=== PATIENT | female | born 1985 | race Hispanic/Latino ===

== ENCOUNTER 2018-02-22 19:56 | Emergency (ER) | payer OTHER, SELFPAY ==
[2018-02-22 20:25] LABS: #Eosinphils 0.2 thou/uL (0.0-0.7); #Lymphocytes 2.9 thou/uL (1.20-3.40); #Monocytes 0.6 thou/uL (0.11-0.59); #Neutrophils 5.2 thou/uL (1.40-6.50); %Basophils 0.3 % (0.0-1.0); %Eosinophils 1.7 % (0.0-10.0); %Lymphocytes 32.1 % (21.0-51.0); %Monocytes 7.2 % (0.0-10.0); %Neutrophils 58.7 % (42.0-75.0); Hemoglobin 12.4 g/dL (12.0-16.0); Mean Corpuscular HGB CONC 34.6 g/dL (32.0-36.0); Mean Corpuscular Hemoglobin 31.1 pg (27.0-31.0); Mean Corpuscular Volume 89.9 fl (81.0-99.0); Mean Platelet Volume 6.7 fL (7.4-10.4); Platelet Count 240 thou/uL (130-400); Red Blood Cell (RBC) Count 3.99 mill/uL (4.20-5.40); White Blood Cell (WBC) Count 8.9 thou/uL (4.8-10.8)
[2018-02-22 20:32] LABS: BHCG - Serum Negative (NEGATIVE); Pregs Control Background? CLEAR/WHITE (CLR/WHITE); Pregs Control Bar Appear? YES (CONTROL BAR)
[2018-02-22 20:41] LABS: ALT (SGPT) 8 U/L (8-55); AST (SGOT) 16 U/L (5-34); Albumin 4.2 g/dL (3.5-5.0); Alkaline Phosphatase 84 U/L (40-150); Anion Gap 13 mmol/L (10-20); BUN (Urea Nitrogen) 16 mg/dL (7.0-18.7); Bilirubin, Total 0.2 mg/dL (0.2-1.2); Calc. Creatinine Clearance 0 mL/min (70-130); Calcium 9.3 mg/dL (7.8-10.44); Carbon Dioxide 23 mmol/L (22-29); Chloride 106 mmol/L (98-107); Estimated GFR-MDRD 85; Globulin 3.5 g/dL (2.4-3.5); Glucose 156 mg/dL (70-105); Lipase 61 U/L (8-78); Potassium 4.2 mmol/L (3.5-5.1); Protein, Total 7.7 g/dL (6.0-8.3); Sodium 138 mmol/L (136-145)
[2018-02-22 21:07] LABS: Bilirubin Negative (Negative); Blood, Urine Negative (Negative); Clarity Clear (Clear); Glucose, Urine (Dipstick) Negative (Negative); Leukocyte Small (Negative); Nitrite Negative (Negative); Protein, Urine (Dipstick) Negative (Neg-Trace); Specific Gravity, Urine 1.025 (1.002-1.036); pH, Urine 6.5 (5.0-9.0)
[2018-02-22 21:17] LABS: Bacteria/HPF None Seen HPF (None Seen); Hyaline Casts/LPF 0-3 HYALINE CAST LPF (0-3 Hyaline); RBC/HPF 0-3 HPF (0-3)
[2018-02-23] MEDS ORDERED: Morphine 4 MG/ML VIAL ONE (00:54)
[2018-02-23] MEDS ORDERED: Mag-Al 1200 mg/1200 mg/30 ML UDCUP ONE (00:55)
[2018-02-23] MEDS ORDERED: Lidocaine Viscous Sol 2% 15 ml UD Cup ONE (00:55)
[2018-02-23] MEDS ORDERED: Ketorolac Tromethamine 60 MG/2 ML VIAL ONE (02:25)
--- NOTE | 2018-02-23 08:30 | ULT ---
PRELIMINARY REPORT/[facility]/EMERGENTY AFTER-HOURS PROCEDURE US Abdomen Limited, Right Upper Quadrant CLINICAL HISTORY: 32 years old, female; Pain and signs and symptoms; Nausea; Abdominal pain; Localized; Right upper quadrant (ruq); Prior surgery; Surgery date: 6+ months; Surgery type: Cholecystectomy TECHNIQUE: Real-time ultrasound of the right upper quadrant with image documentation. COMPARISON: No relevant prior studies available. FINDINGS: Liver: No acute findings. No mass. Gallbladder: Prior cholecystectomy. Common bile duct: Mildly dilated common bile duct measuring up to 7.5 mm. Pancreas: Limited visualization due to bowel gas. Unremarkable as visualized. Right kidney: No acute findings. No stones. No solid mass. No hydronephrosis. IMPRESSION: No acute findings. Prior cholecystectomy. Mildly dilated common bile duct. Thank you for allowing us to participate in the care of your patient. Dictated and Authenticated by: Kyaw Crockett MD 02/23/2018 2:02 AM Central Time ([place] & [place]) FINAL REPORT GALLBLADDER ULTRASOUND: HISTORY: Abdominal pain. COMPARISON: November 21, 2008. TECHNIQUE: Utilizing a multihertz transducer, sonographic imaging of the right upper quadrant is performed in th e longitudinal and transverse plane. FINDINGS: This report is in agreement with the preliminary report by [facility]. No acute abnormality I the abdomen. Gallbladder is surgically absent. Common bile duct diameter is 0.8 cm compatible with a reservoir e ffect from a previous cholecystectomy. Hepatic parenchyma is unremarkable. POS: [facility]
== END 2018-02-23 03:00 | disposition home or self-care (01) ==
LOC: ERS 19:56
DX: R10.13 Epigastric pain (principal); I48.91 Unspecified atrial fibrillation
CPT/HCPCS: 36415; 76705; 80053; 81003; 81015; 82550; 83690; 84703; 85025; 96372; J1885; J2270

== ENCOUNTER 2018-02-25 12:12 | Emergency (ER) | payer SELFPAY ==
[2018-02-25 12:40] LABS: #Eosinphils 0.2 thou/uL (0.0-0.7); #Lymphocytes 2.5 thou/uL (1.20-3.40); #Monocytes 0.4 thou/uL (0.11-0.59); %Basophils 0.5 % (0.0-1.0); %Eosinophils 2.4 % (0.0-10.0); %Lymphocytes 30.4 % (21.0-51.0); %Monocytes 5.2 % (0.0-10.0); %Neutrophils 61.4 % (42.0-75.0); Hemoglobin 13.4 g/dL (12.0-16.0); Mean Corpuscular HGB CONC 34.9 g/dL (32.0-36.0); Mean Corpuscular Hemoglobin 31.3 pg (27.0-31.0); Mean Corpuscular Volume 89.6 fl (81.0-99.0); Mean Platelet Volume 6.8 fL (7.4-10.4); Platelet Count 254 thou/uL (130-400); RBC Distribution Width 11.1 % (11.5-14.5); Red Blood Cell (RBC) Count 4.28 mill/uL (4.20-5.40); White Blood Cell (WBC) Count 8.1 thou/uL (4.8-10.8)
[2018-02-25 13:01] LABS: ALT (SGPT) 11 U/L (8-55); AST (SGOT) 24 U/L (5-34); Albumin 4.5 g/dL (3.5-5.0); Alkaline Phosphatase 87 U/L (40-150); Anion Gap 14 mmol/L (10-20); BUN (Urea Nitrogen) 16 mg/dL (7.0-18.7); Bilirubin, Total 0.5 mg/dL (0.2-1.2); CK (CPK) 44 U/L (29-168); Calc. Creatinine Clearance 0 mL/min (70-130); Calcium 9.6 mg/dL (7.8-10.44); Carbon Dioxide 24 mmol/L (22-29); Chloride 104 mmol/L (98-107); Estimated GFR-MDRD 88; Globulin 3.8 g/dL (2.4-3.5); Glucose 100 mg/dL (70-105); Lipase 34 U/L (8-78); Potassium 3.7 mmol/L (3.5-5.1); Protein, Total 8.3 g/dL (6.0-8.3); Sodium 138 mmol/L (136-145)
[2018-02-25 13:06] LABS: CKMB 0.4 ng/mL (0-6.6); Troponin I Less than 0.010 ng/mL (< 0.028)
--- NOTE | 2018-02-25 13:23 | RAD ---
PORTABLE UPRIGHT FRONTAL CHEST: Date: 02/25/18 COMPARISON: 05/29/12. HISTORY: Chest pain and abdominal pain. FINDINGS: Heart and mediastinal contours are unremarkable. Lungs are clear. Osseous structures unremarkable. IMPRESSION: Unremarkable frontal chest radiograph. POS: [facility]
[2018-02-25] MEDS ORDERED: Sucralfate 1 GM/10 ML UDCUP ONE (14:59)
[2018-02-25] MEDS ORDERED: Pantoprazole 40 MG VIAL ONE ×2 (15:14)
== END 2018-02-25 16:56 | disposition home or self-care (01) ==
LOC: ERS 12:12
DX: K29.00 Acute gastritis without bleeding (principal); I48.91 Unspecified atrial fibrillation; K85.90 Acute pancreatitis without necrosis or infection, unspecified; D64.9 Anemia, unspecified
CPT/HCPCS: 71045; 80053; 82553; 83605; 83690; 83880; 84484; 85025; 93005; 96361; 96374; C9113

== ENCOUNTER 2018-02-25 21:17 | Emergency (ER) | payer SELFPAY | END 2018-02-25 23:31 | disposition left against medical advice (07) | LOC: ERS 21:17 | DX: Z53.21 Procedure and treatment not carried out due to patient leaving prior to being seen by health care provider (principal) ==

== ENCOUNTER 2018-03-15 14:28 | Emergency (ER) | payer SELFPAY ==
[2018-03-15 15:10] LABS: #Eosinphils 0.2 thou/uL (0.0-0.7); #Lymphocytes 2.1 thou/uL (1.20-3.40); #Monocytes 0.6 thou/uL (0.11-0.59); #Neutrophils 6.3 thou/uL (1.40-6.50); %Basophils 0.2 % (0.0-1.0); %Eosinophils 2.2 % (0.0-10.0); %Lymphocytes 23.1 % (21.0-51.0); %Monocytes 6.4 % (0.0-10.0); %Neutrophils 68.1 % (42.0-75.0); Hemoglobin 11.6 g/dL (12.0-16.0); Mean Corpuscular HGB CONC 34.5 g/dL (32.0-36.0); Mean Corpuscular Hemoglobin 31.1 pg (27.0-31.0); Mean Corpuscular Volume 90.2 fl (81.0-99.0); Platelet Count 225 thou/uL (130-400); Red Blood Cell (RBC) Count 3.72 mill/uL (4.20-5.40); White Blood Cell (WBC) Count 9.3 thou/uL (4.8-10.8)
[2018-03-15] MEDS ORDERED: Lidocaine Viscous Sol 2% 15 ml UD Cup ONE (15:21)
[2018-03-15] MEDS ORDERED: Mag-Al 1200 mg/1200 mg/30 ML UDCUP ONE (15:21)
[2018-03-15 15:32] LABS: ALT (SGPT) 21 U/L (8-55); AST (SGOT) 53 U/L (5-34); Albumin 4.2 g/dL (3.5-5.0); Alkaline Phosphatase 96 U/L (40-150); Anion Gap 12 mmol/L (10-20); BUN (Urea Nitrogen) 13 mg/dL (7.0-18.7); Bilirubin, Total 0.2 mg/dL (0.2-1.2); CK (CPK) 47 U/L (29-168); Calc. Creatinine Clearance 0 mL/min (70-130); Calcium 9.1 mg/dL (7.8-10.44); Carbon Dioxide 26 mmol/L (22-29); Chloride 104 mmol/L (98-107); Estimated GFR-MDRD 84; Globulin 3.3 g/dL (2.4-3.5); Glucose 108 mg/dL (70-105); Lipase 44 U/L (8-78); Protein, Total 7.5 g/dL (6.0-8.3); Sodium 138 mmol/L (136-145)
[2018-03-15 15:34] LABS: CKMB 0.6 ng/mL (0-6.6); Troponin I Less than 0.010 ng/mL (< 0.028)
[2018-03-15] MEDS ORDERED: Glycopyrrolate 0.2 MG/ML 5 ML SYRINGE SLOW IVP SCH (15:45)
--- NOTE | 2018-03-15 15:58 | RAD ---
CHEST 2 VIEWS: Date: 03/15/18 HISTORY: Chest pain. COMPARISON: Prior chest radiograph dated 02/25/18. FINDINGS: Lungs are clear. No pneumothorax or effusion. Cardiac silhouette and mediastinal contours are within normal limits. IMPRESSION: No acute thoracic abnormality. POS: [facility]
[2018-03-15 16:12] LABS: Bilirubin Negative (Negative); Blood, Urine Negative (Negative); Clarity CLEAR (Clear); Glucose, Urine (Dipstick) Negative (Negative); Leukocyte Negative (Negative); Nitrite Negative (Negative); Protein, Urine (Dipstick) Negative (Neg-Trace); Specific Gravity, Urine 1.026 (1.002-1.036); pH, Urine 6.5 (5.0-9.0)
[2018-03-15 16:16] LABS: Pregnancy Test - Urine (BHCG) Negative (Negative); Pregu Control Background? CLEAR/WHITE (CLR/WHITE); Pregu Control Bar Appear? YES (CONTROL BAR); Specific Gravity 1.026 (1.002-1.036)
== END 2018-03-15 17:07 | disposition home or self-care (01) ==
LOC: ERS 14:28
DX: R10.13 Epigastric pain (principal); I48.91 Unspecified atrial fibrillation; D64.9 Anemia, unspecified
CPT/HCPCS: 36415; 71046; 80053; 81003; 81025; 82550; 82553; 83690; 84484; 85025; 93005; 96374

== ENCOUNTER 2021-02-18 13:37 | Inpatient (IN) | payer OTHER, SELFPAY ==
[2021-02-18 14:32] LABS: #Eosinphils 0.2 thou/uL (0.0-0.7); #Lymphocytes 2.3 thou/uL (1.20-3.40); #Monocytes 0.7 thou/uL (0.11-0.59); #Neutrophils 6.2 thou/uL (1.40-6.50); %Eosinophils 2.5 % (0.0-10.0); %Lymphocytes 24.7 % (21.0-51.0); %Monocytes 7.3 % (0.0-10.0); %Neutrophils 65.5 % (42.0-75.0); Hemoglobin 11.2 g/dL (12.0-16.0); Mean Corpuscular HGB CONC 32.7 g/dL (32.0-36.0); Mean Corpuscular Hemoglobin 27.1 pg (27.0-31.0); Mean Corpuscular Volume 82.9 fL (78.0-98.0); Mean Platelet Volume 6.9 fL (7.4-10.4); Platelet Count 260 thou/uL (130-400); Red Blood Cell (RBC) Count 4.14 mill/uL (4.20-5.40); White Blood Cell (WBC) Count 9.4 thou/uL (4.8-10.8)
[2021-02-18 14:53] LABS: ALT (SGPT) 12 U/L (8-55); AST (SGOT) 17 U/L (5-34); Albumin 4.1 g/dL (3.5-5.0); Alkaline Phosphatase 83 U/L (40-110); Anion Gap 12 mmol/L (10-20); BUN (Urea Nitrogen) 10 mg/dL (7.0-18.7); Bilirubin, Total 0.2 mg/dL (0.2-1.2); Calc. Creatinine Clearance 0 mL/min (70-130); Calcium 9.1 mg/dL (7.8-10.44); Carbon Dioxide 29 mmol/L (22-29); Chloride 103 mmol/L (98-107); Globulin 3.7 g/dL (2.4-3.5); Glucose 222 mg/dL (70-105); Potassium 4.2 mmol/L (3.5-5.1); Protein, Total 7.8 g/dL (6.0-8.3); Sodium 140 mmol/L (136-145)
[2021-02-18 14:57] LABS: Bilirubin Negative (Negative); Blood, Urine Negative (Negative); Clarity Clear (Clear); Glucose, Urine (Dipstick) Greater than 1000 mg/dL (Negative); Ketone, Urine Negative (Negative); Leukocyte Negative Leu/uL (Negative); Nitrite Negative (Negative); Protein, Urine (Dipstick) Negative (Neg-Trace); Specific Gravity, Urine 1.029 (1.002-1.036); Urobilinogen Normal mg/dL (Less than 2)
[2021-02-18] MEDS ORDERED: Morphine 4 MG/ML VIAL ONE ×2 (15:35→16:05)
[2021-02-18] MEDS ORDERED: Ondansetron PF 4 MG/2 ML Vial ONE (15:35)
[2021-02-18] MEDS ORDERED: HYDROmorphone 0.5 MG/0.5 ML SYRINGE ONE (16:39)
[2021-02-18] MEDS ORDERED: Ketorolac Tromethamine 30 MG/ML VIAL IVP PRN (18:27)
[2021-02-18] MEDS ORDERED: Morphine 4 MG/ML VIAL SLOW IVP PRN ×2 (18:27→20:04)
[2021-02-18] MEDS ORDERED: Ondansetron ODT 4 MG TAB SL PRN (18:30)
[2021-02-18] MEDS ORDERED: Ondansetron PF 4 MG/2 ML Vial IVP PRN ×2 (18:30→20:13)
[2021-02-18] MEDS ORDERED: Acetaminophen 325 MG TAB PO PRN ×2 (18:30→20:13)
[2021-02-18] MEDS ORDERED: Sodium Chloride 0.9% 1,000 ML IV SCH (18:30)
[2021-02-18] MEDS ORDERED: Dextrose 5% in Water 1,000 ML IV PRN (20:06)
[2021-02-18] MEDS ORDERED: Dextrose 50% Abboject 50 ML SYRINGE SLOW IVP PRN (20:06)
[2021-02-18] MEDS ORDERED: Acetaminophen 650 MG Suppository PR PRN (20:13)
[2021-02-18] MEDS ORDERED: Ondansetron ODT 4 MG TAB PO PRN (20:13)
[2021-02-18] MEDS ORDERED: Sodium Chloride 0.9% (PF) 10 ML VIAL FS PRN (21:00)
[2021-02-18] MEDS ORDERED: Pantoprazole 40 MG VIAL IVP SCH (21:00)
[2021-02-18] MEDS: Fentanyl 100 MCG/2 ML VIAL SLOW IVP SCH (21:02)
[2021-02-18] MEDS: Sodium Chloride 0.9% 1,000 ML IV SCH (22:02)
[2021-02-19] MEDS: Sodium Chloride 0.9% 1,000 ML IV SCH ×5 (00:45→22:15)
[2021-02-19] MEDS: Fentanyl 100 MCG/2 ML VIAL SLOW IVP SCH ×6 (01:15→20:24)
[2021-02-19 02:31] VITALS: BMI 30.2
[2021-02-19 06:05] LABS: #Eosinphils 0.2 thou/uL (0.0-0.7); #Lymphocytes 2.3 thou/uL (1.20-3.40); #Monocytes 0.8 thou/uL (0.11-0.59); #Neutrophils 3.8 thou/uL (1.40-6.50); %Basophils 0.3 % (0.0-1.0); %Eosinophils 2.5 % (0.0-10.0); %Lymphocytes 32.3 % (21.0-51.0); %Monocytes 11.2 % (0.0-10.0); %Neutrophils 53.6 % (42.0-75.0); Hemoglobin 8.8 g/dL (12.0-16.0); Mean Corpuscular HGB CONC 31.5 g/dL (32.0-36.0); Mean Corpuscular Hemoglobin 26.3 pg (27.0-31.0); Mean Corpuscular Volume 83.5 fL (78.0-98.0); Mean Platelet Volume 7.3 fL (7.4-10.4); Platelet Count 185 thou/uL (130-400); RBC Distribution Width 13.2 % (11.5-14.5); Red Blood Cell (RBC) Count 3.37 mill/uL (4.20-5.40)
[2021-02-19 06:54] LABS: Hemoglobin A1c 7.5 % (4.0-6.0)
[2021-02-19 06:58] LABS: ALT (SGPT) 10 U/L (8-55); AST (SGOT) 12 U/L (5-34); Alkaline Phosphatase 63 U/L (40-110); Anion Gap 7 mmol/L (10-20); BUN (Urea Nitrogen) 7 mg/dL (7.0-18.7); Bilirubin, Total 0.3 mg/dL (0.2-1.2); Calc. Creatinine Clearance 148 mL/min (70-130); Calcium 7.5 mg/dL (7.8-10.44); Carbon Dioxide 25 mmol/L (22-29); Chloride 106 mmol/L (98-107); Globulin 2.8 g/dL (2.4-3.5); Glucose 113 mg/dL (70-105); Lipase 114 U/L (8-78); Magnesium 1.6 mg/dL (1.6-2.6); Potassium 3.9 mmol/L (3.5-5.1); Protein, Total 5.8 g/dL (6.0-8.3); Sodium 134 mmol/L (136-145)
[2021-02-19] MEDS ORDERED: Magnesium 2 GM/50 ML 2 GM in Premix Bag 1 BAG IVPB SCH (08:15)
[2021-02-19] MEDS ORDERED: Electrolyte Replacement Protocol 1 EACH FS PRN (08:15)
[2021-02-19] MEDS: Pantoprazole 40 MG VIAL IVP SCH (08:52)
[2021-02-19 09:15] LABS: Phosphorus 2.3 mg/dL (2.3-4.7)
[2021-02-19 10:08] LABS: SARS-CoV-2 PCR by NAA Not Detected (NotDetected)
[2021-02-19] MEDS: Ketorolac Tromethamine 30 MG/ML VIAL IVP PRN (20:24)
[2021-02-20] MEDS: Fentanyl 100 MCG/2 ML VIAL SLOW IVP SCH ×6 (01:17→20:33)
[2021-02-20] MEDS: Sodium Chloride 0.9% 1,000 ML IV SCH ×4 (03:16→16:49)
[2021-02-20 05:46] LABS: #Eosinphils 0.1 thou/uL (0.0-0.7); #Lymphocytes 1.3 thou/uL (1.20-3.40); #Monocytes 0.5 thou/uL (0.11-0.59); #Neutrophils 4.7 thou/uL (1.40-6.50); %Basophils 0.1 % (0.0-1.0); %Eosinophils 1.6 % (0.0-10.0); %Lymphocytes 19.6 % (21.0-51.0); %Neutrophils 71.7 % (42.0-75.0); Hemoglobin 9.1 g/dL (12.0-16.0); Mean Corpuscular Hemoglobin 26.7 pg (27.0-31.0); Mean Corpuscular Volume 83.3 fL (78.0-98.0); Mean Platelet Volume 7.1 fL (7.4-10.4); Platelet Count 180 thou/uL (130-400); RBC Distribution Width 12.8 % (11.5-14.5); Red Blood Cell (RBC) Count 3.42 mill/uL (4.20-5.40); White Blood Cell (WBC) Count 6.5 thou/uL (4.8-10.8)
[2021-02-20 06:16] LABS: ALT (SGPT) 7 U/L (8-55); AST (SGOT) 12 U/L (5-34); Alkaline Phosphatase 65 U/L (40-110); Anion Gap 14 mmol/L (10-20); BUN (Urea Nitrogen) 6 mg/dL (7.0-18.7); Bilirubin, Total 0.4 mg/dL (0.2-1.2); Calc. Creatinine Clearance 151 mL/min (70-130); Calcium 7.3 mg/dL (7.8-10.44); Carbon Dioxide 16 mmol/L (22-29); Chloride 107 mmol/L (98-107); Globulin 2.8 g/dL (2.4-3.5); Glucose 244 mg/dL (70-105); Lipase 50 U/L (8-78); Magnesium 1.9 mg/dL (1.6-2.6); Phosphorus 1.8 mg/dL (2.3-4.7); Potassium 3.6 mmol/L (3.5-5.1); Protein, Total 5.8 g/dL (6.0-8.3); Sodium 133 mmol/L (136-145)
[2021-02-20] MEDS ORDERED: Potassium Phosphate 15 MMOL in Sodium Chloride 0.9% 100 ML IVPB SCH (06:45)
[2021-02-20] MEDS ORDERED: Magnesium 2 GM/50 ML 2 GM in Premix Bag 1 BAG IVPB SCH (06:45)
[2021-02-20] MEDS: Ketorolac Tromethamine 30 MG/ML VIAL IVP PRN ×3 (08:48→22:29)
[2021-02-20] MEDS: Pantoprazole 40 MG VIAL IVP SCH (08:48)
[2021-02-20 19:17] LABS: Lactic Acid 0.7 mmol/L (0.5-2.2)
[2021-02-20 19:21] LABS: Anion Gap 13 mmol/L (10-20); BUN (Urea Nitrogen) 5 mg/dL (7.0-18.7); Calc. Creatinine Clearance 161 mL/min (70-130); Calcium 7.9 mg/dL (7.8-10.44); Carbon Dioxide 17 mmol/L (22-29); Chloride 110 mmol/L (98-107); Glucose 70 mg/dL (70-105); Potassium 3.7 mmol/L (3.5-5.1); Sodium 136 mmol/L (136-145)
[2021-02-20] MEDS ORDERED: Insulin Regular 300 UNITS/3 ML VIAL SC PRN (22:18)
[2021-02-20] MEDS: D5 1/2 NS w/20 mEq KCL 1,000 ML IV SCH (22:30)
[2021-02-21] MEDS: Sodium Chloride 0.9% 1,000 ML IV SCH (00:36)
[2021-02-21] MEDS: Fentanyl 100 MCG/2 ML VIAL SLOW IVP SCH ×6 (00:55→20:27)
[2021-02-21] MEDS: D5 1/2 NS w/20 mEq KCL 1,000 ML IV SCH ×4 (04:45→20:29)
[2021-02-21 05:30] LABS: #Eosinphils 0.2 thou/uL (0.0-0.7); #Lymphocytes 1.4 thou/uL (1.20-3.40); #Monocytes 0.4 thou/uL (0.11-0.59); #Neutrophils 1.8 thou/uL (1.40-6.50); %Basophils 0.7 % (0.0-1.0); %Eosinophils 5.5 % (0.0-10.0); %Lymphocytes 35.8 % (21.0-51.0); %Monocytes 11.4 % (0.0-10.0); %Neutrophils 46.6 % (42.0-75.0); Hemoglobin 9.1 g/dL (12.0-16.0); Mean Corpuscular HGB CONC 33.2 g/dL (32.0-36.0); Mean Corpuscular Hemoglobin 27.3 pg (27.0-31.0); Mean Corpuscular Volume 82.2 fL (78.0-98.0); Mean Platelet Volume 7.2 fL (7.4-10.4); Platelet Count 202 thou/uL (130-400); RBC Distribution Width 12.9 % (11.5-14.5); Red Blood Cell (RBC) Count 3.34 mill/uL (4.20-5.40); White Blood Cell (WBC) Count 3.8 thou/uL (4.8-10.8)
[2021-02-21 05:55] LABS: ALT (SGPT) 8 U/L (8-55); AST (SGOT) 12 U/L (5-34); Alkaline Phosphatase 62 U/L (40-110); Anion Gap 12 mmol/L (10-20); BUN (Urea Nitrogen) 4 mg/dL (7.0-18.7); Bilirubin, Total 0.3 mg/dL (0.2-1.2); Calc. Creatinine Clearance 173 mL/min (70-130); Calcium 7.7 mg/dL (7.8-10.44); Carbon Dioxide 16 mmol/L (22-29); Chloride 110 mmol/L (98-107); Globulin 2.9 g/dL (2.4-3.5); Glucose 136 mg/dL (70-105); Lipase 25 U/L (8-78); Magnesium 1.8 mg/dL (1.6-2.6); Potassium 3.9 mmol/L (3.5-5.1); Protein, Total 5.9 g/dL (6.0-8.3); Sodium 134 mmol/L (136-145)
[2021-02-21 06:06] LABS: Phosphorus 1.8 mg/dL (2.3-4.7)
[2021-02-21] MEDS: Ketorolac Tromethamine 30 MG/ML VIAL IVP PRN ×2 (06:18→18:42)
[2021-02-21] MEDS ORDERED: Magnesium 2 GM/50 ML 2 GM in Premix Bag 1 BAG IVPB SCH (06:30)
[2021-02-21] MEDS ORDERED: Potassium Phosphate 15 MMOL in Sodium Chloride 0.9% 100 ML IVPB SCH (06:30)
[2021-02-21] MEDS: Pantoprazole 40 MG VIAL IVP SCH (09:54)
[2021-02-21] MEDS ORDERED: Sodium Phosphate 30 MMOL in Sodium Chloride 0.9% 250 ML 250 ML IVPB SCH (10:30)
[2021-02-21] MEDS ORDERED: Iothalamate Meglumine 60% 50 ML VIAL FS ONE (12:38)
[2021-02-21] MEDS ORDERED: Indomethacin 50 MG SUPP ONE (12:39)
[2021-02-21] MEDS ORDERED: cefTRIAXone\\ROCEPHIN 1 GM VIAL ONE (13:00)
[2021-02-21] MEDS ORDERED: Sodium Chloride 0.9% 100 ML ONE (13:01)
[2021-02-21] MEDS ORDERED: Fentanyl 100 MCG/2 ML VIAL ONE ×2 (13:28→15:33)
[2021-02-21] MEDS ORDERED: Lidocaine 1% PF 5 ML VIAL ONE (13:34)
[2021-02-21] MEDS ORDERED: PHENYLEPHRINE-NS 100 MCG/ML 10 ML SYRINGE ONE (13:34)
[2021-02-21] MEDS ORDERED: Ondansetron PF 4 MG/2 ML Vial ONE (13:34)
[2021-02-21] MEDS ORDERED: Rocuronium Bromide 10 MG/ML (10ML VIAL) ONE (13:34)
[2021-02-21] MEDS ORDERED: PROPOFOL 200 MG/20 ML VIAL ONE (13:34)
[2021-02-21] MEDS ORDERED: Glycopyrrolate 0.2 MG/ML 5 ML SYRINGE ONE (13:34)
[2021-02-21] MEDS ORDERED: Dexamethasone 20 MG/5 ML VIAL ONE (13:34)
[2021-02-21] MEDS ORDERED: Promethazine HCl 25 MG/ML VIAL SLOW IVP PRN (14:58)
[2021-02-21] MEDS ORDERED: Meperidine HCl/PF 25 MG/ML VIAL SLOW IVP PRN (14:58)
[2021-02-21] MEDS ORDERED: HYDROmorphone 2 MG/ML VIAL SLOW IVP PRN (14:58)
[2021-02-21] MEDS ORDERED: Promethazine HCl 25 MG/ML VIAL IM PRN (14:58)
[2021-02-21] MEDS ORDERED: Ondansetron HCl/PF 4 MG/2 ML Vial IVP PRN (14:58)
[2021-02-21] MEDS ORDERED: Promethazine HCl 25 MG/ML VIAL ONE (15:46)
[2021-02-21] MEDS ORDERED: Ketorolac Tromethamine 30 MG/ML VIAL ONE (16:07)
[2021-02-22] MEDS: Fentanyl 100 MCG/2 ML VIAL SLOW IVP SCH ×4 (00:07→11:56)
[2021-02-22] MEDS: Insulin Regular 300 UNITS/3 ML VIAL SC PRN ×2 (00:08→05:09)
[2021-02-22] MEDS: Ketorolac Tromethamine 30 MG/ML VIAL IVP PRN (05:09)
[2021-02-22] MEDS ORDERED: Cepastat Lozenges 1 LOZ PO PRN (05:18)
[2021-02-22 06:01] LABS: ALT (SGPT) 10 U/L (8-55); AST (SGOT) 14 U/L (5-34); Albumin 3.3 g/dL (3.5-5.0); Alkaline Phosphatase 66 U/L (40-110); Anion Gap 12 mmol/L (10-20); BUN (Urea Nitrogen) 5 mg/dL (7.0-18.7); Bilirubin, Total 0.2 mg/dL (0.2-1.2); Calc. Creatinine Clearance 141 mL/min (70-130); Calcium 8.2 mg/dL (7.8-10.44); Carbon Dioxide 17 mmol/L (22-29); Chloride 109 mmol/L (98-107); Globulin 3.3 g/dL (2.4-3.5); Glucose 256 mg/dL (70-105); Magnesium 1.7 mg/dL (1.6-2.6); Phosphorus 2.2 mg/dL (2.3-4.7); Potassium 4.3 mmol/L (3.5-5.1); Protein, Total 6.6 g/dL (6.0-8.3); Sodium 134 mmol/L (136-145)
[2021-02-22] MEDS ORDERED: Magnesium 2 GM/50 ML 2 GM in Premix Bag 1 BAG IVPB SCH (06:30)
[2021-02-22] MEDS ORDERED: Sodium Phosphate 30 MMOL in Sodium Chloride 0.9% 250 ML 250 ML IVPB SCH (08:00)
[2021-02-22] MEDS: D5 1/2 NS w/20 mEq KCL 1,000 ML IV SCH (08:21)
[2021-02-22] MEDS ORDERED: K-Phos Neutral 250 MG TAB PO SCH (09:15)
[2021-02-22] MEDS ORDERED: metFORMIN 500 MG TAB PO SCH ×2 (09:15→17:00)
[2021-02-22] MEDS: Pantoprazole 40 MG VIAL IVP SCH (09:19)
[2021-02-22 11:43] VITALS: BP 100/66; TEMP 98.3
== END 2021-02-22 12:15 | disposition home or self-care (01) | DRG 444 ==
LOC: ERS 13:37 → SURG B 17:52 → OBSVTOIN 17:52
PROVIDERS: ADMIT Internal Medicine; ATTEND Internal Medicine
PROC: 0FC98ZZ Extirpation of Matter from Common Bile Duct, Via Natural or Artificial Opening Endoscopic (ICD-10-PCS; principal; 2021-02-21)
PROC: 0F798ZZ Dilation of Common Bile Duct, Via Natural or Artificial Opening Endoscopic (ICD-10-PCS; 2021-02-21)
PROC: BF101ZZ Fluoroscopy of Bile Ducts using Low Osmolar Contrast (ICD-10-PCS; 2021-02-21)
DX: K80.50 Calculus of bile duct without cholangitis or cholecystitis without obstruction (principal); K85.10 Biliary acute pancreatitis without necrosis or infection; E87.1 Hypo-osmolality and hyponatremia; E87.2 Acidosis; Q44.0 Agenesis, aplasia and hypoplasia of gallbladder; K86.1 Other chronic pancreatitis; Z20.822 Contact with and (suspected) exposure to COVID-19; E83.39 Other disorders of phosphorus metabolism; E88.09 Other disorders of plasma-protein metabolism, not elsewhere classified; E66.9 Obesity, unspecified; I48.91 Unspecified atrial fibrillation; E83.42 Hypomagnesemia; K59.09 Other constipation; Z68.30 Body mass index [BMI] 30.0-30.9, adult; E11.65 Type 2 diabetes mellitus with hyperglycemia
CPT/HCPCS: 36415; 36416; 74181; 74330; 76705; 80053; 80061; 81003; 82010; 83036; 83605; 83690; 83735; 84100; 85025; 87635; 93005; 96374; 96375; 96376; C9113; G0378; J0696; J1100; J1170; J1610; J1815; J1885; J2270; J2405; J2550; J2704; J3010; J3475; J3480; J3490; Q9961; U0003; U0005

== ENCOUNTER 2021-05-09 23:52 | Inpatient (IN) | payer OTHER, SELFPAY ==
[2021-05-10 00:24] LABS: #Eosinphils 0.2 thou/uL (0.0-0.7); #Monocytes 0.7 thou/uL (0.11-0.59); #Neutrophils 4.6 thou/uL (1.40-6.50); %Basophils 0.3 % (0.0-1.0); %Eosinophils 2.6 % (0.0-10.0); %Lymphocytes 35.1 % (21.0-51.0); %Monocytes 7.7 % (0.0-10.0); %Neutrophils 54.3 % (42.0-75.0); Mean Corpuscular HGB CONC 34.7 g/dL (32.0-36.0); Mean Corpuscular Hemoglobin 30.1 pg (27.0-31.0); Mean Corpuscular Volume 86.7 fL (78.0-98.0); Platelet Count 237 thou/uL (130-400); RBC Distribution Width 15.4 % (11.5-14.5); Red Blood Cell (RBC) Count 3.98 mill/uL (4.20-5.40); White Blood Cell (WBC) Count 8.5 thou/uL (4.8-10.8)
[2021-05-10 00:30] LABS: BHCG - Serum Negative (NEGATIVE); Pregs Control Bar Appear? YES (CONTROL BAR)
[2021-05-10 00:31] LABS: Pregs Control Background? CLEAR/WHITE (CLR/WHITE)
[2021-05-10 00:36] LABS: ALT (SGPT) 10 U/L (8-55); AST (SGOT) 15 U/L (5-34); Alkaline Phosphatase 75 U/L (40-110); Anion Gap 15 mmol/L (10-20); BUN (Urea Nitrogen) 10 mg/dL (7.0-18.7); Bilirubin, Total 0.4 mg/dL (0.2-1.2); Calc. Creatinine Clearance 0 mL/min (70-130); Calcium 9.1 mg/dL (7.8-10.44); Carbon Dioxide 22 mmol/L (22-29); Chloride 104 mmol/L (98-107); Globulin 3.3 g/dL (2.4-3.5); Glucose 107 mg/dL (70-105); Lipase 47 U/L (8-78); Potassium 3.6 mmol/L (3.5-5.1); Protein, Total 7.3 g/dL (6.0-8.3); Sodium 137 mmol/L (136-145)
[2021-05-10 00:45] LABS: Bilirubin Negative (Negative); Blood, Urine Negative (Negative); Clarity Clear (Clear); Glucose, Urine (Dipstick) Normal (Negative); Ketone, Urine Negative (Negative); Leukocyte Negative Leu/uL (Negative); Nitrite Negative (Negative); Protein, Urine (Dipstick) Negative (Neg-Trace); Specific Gravity, Urine 1.014 (1.002-1.036); Urobilinogen Normal mg/dL (Less than 2); pH, Urine 5.5 (5.0-9.0)
[2021-05-10] MEDS ORDERED: Ondansetron PF 4 MG/2 ML Vial ONE (01:28)
[2021-05-10] MEDS ORDERED: Morphine 4 MG/ML VIAL ONE (01:28)
[2021-05-10] MEDS ORDERED: Acetaminophen 325 MG TAB PO PRN (01:58)
[2021-05-10] MEDS ORDERED: Bisacodyl 5 MG TAB PO PRN (01:58)
[2021-05-10] MEDS ORDERED: HumaLOG 300 UNITS/3 ML VIAL SC PRN (02:00)
[2021-05-10] MEDS ORDERED: hydrALAZINE 20 MG/ML VIAL SLOW IVP PRN (02:00)
[2021-05-10] MEDS: Fentanyl 100 MCG/2 ML VIAL SLOW IVP PRN ×5 (02:37→21:55)
[2021-05-10 02:50] VITALS: BMI 26.9
[2021-05-10 04:54] LABS: Hemoglobin 10.8 g/dL (12.0-16.0); Mean Corpuscular HGB CONC 34.8 g/dL (32.0-36.0); Mean Corpuscular Hemoglobin 30.3 pg (27.0-31.0); Mean Platelet Volume 7.2 fL (7.4-10.4); Platelet Count 196 thou/uL (130-400); RBC Distribution Width 15.4 % (11.5-14.5); Red Blood Cell (RBC) Count 3.56 mill/uL (4.20-5.40); White Blood Cell (WBC) Count 6.5 thou/uL (4.8-10.8)
[2021-05-10 04:57] LABS: Phosphorus 3.2 mg/dL (2.3-4.7)
[2021-05-10 05:01] LABS: ALT (SGPT) 9 U/L (8-55); AST (SGOT) 14 U/L (5-34); Albumin 3.5 g/dL (3.5-5.0); Alkaline Phosphatase 67 U/L (40-110); Anion Gap 11 mmol/L (10-20); BUN (Urea Nitrogen) 9 mg/dL (7.0-18.7); Bilirubin, Total 0.3 mg/dL (0.2-1.2); Calc. Creatinine Clearance 126 mL/min (70-130); Calcium 8.4 mg/dL (7.8-10.44); Carbon Dioxide 23 mmol/L (22-29); Chloride 107 mmol/L (98-107); Globulin 2.7 g/dL (2.4-3.5); Glucose 103 mg/dL (70-105); Potassium 3.8 mmol/L (3.5-5.1); Protein, Total 6.2 g/dL (6.0-8.3); Sodium 137 mmol/L (136-145)
[2021-05-10 05:02] LABS: Magnesium 1.7 mg/dL (1.6-2.6)
[2021-05-10 05:17] LABS: Band 12 % (5-11); Eosinophils 2 % (0-10); Lymphocytes 36 % (21-51); MDiff Complete? YES; Monocytes 7 % (0-10); Neutrophil 43 % (42-75)
[2021-05-10] MEDS: HYDROcodone/Acetaminophen 7.5/325 mg Tablet PO PRN ×3 (06:59→19:45)
[2021-05-10] MEDS: Enoxaparin Sodium 40 MG/0.4 ML SYRINGE SC SCH (09:21)
[2021-05-10] MEDS: Ondansetron PF 4 MG/2 ML Vial IVP PRN (09:23)
[2021-05-10] MEDS: Famotidine 20 MG TAB PO SCH ×2 (09:26→19:52)
[2021-05-10] MEDS ORDERED: Iopamidol-370 76% 500 ML 1 ML ONE (09:54)
[2021-05-10] MEDS ORDERED: Sodium Chloride 0.9% 1,000 ML IV SCH ×3 (10:15→23:30)
[2021-05-10] MEDS: Sodium Chloride 0.9% 1,000 ML IV SCH ×2 (15:27→19:50)
[2021-05-10] MEDS ORDERED: Dextrose 50% Abboject 50 ML SYRINGE ONE ×2 (16:51→20:15)
[2021-05-10] MEDS ORDERED: diphenhydrAMINE 50 MG/ML VIAL IVP SCH (22:30)
[2021-05-10] MEDS: Zolpidem Tartrate 5 MG TAB PO PRN (22:34)
[2021-05-10] MEDS: Dextrose 5 % And 0.9 % NaCl 1,000 ML IV SCH (23:51)
[2021-05-11] MEDS: Fentanyl 100 MCG/2 ML VIAL SLOW IVP PRN ×6 (01:56→19:34)
[2021-05-11 04:20] LABS: Hemoglobin 10.9 g/dL (12.0-16.0); Mean Corpuscular HGB CONC 31.9 g/dL (32.0-36.0); Mean Corpuscular Hemoglobin 28.5 pg (27.0-31.0); Mean Corpuscular Volume 89.5 fL (78.0-98.0); Mean Platelet Volume 7.9 fL (7.4-10.4); Platelet Count 195 thou/uL (130-400); RBC Distribution Width 15.4 % (11.5-14.5); Red Blood Cell (RBC) Count 3.84 mill/uL (4.20-5.40); White Blood Cell (WBC) Count 5.3 thou/uL (4.8-10.8)
[2021-05-11 08:48] LABS: ALT (SGPT) 9 U/L (8-55); AST (SGOT) 18 U/L (5-34); Albumin 3.5 g/dL (3.5-5.0); Alkaline Phosphatase 65 U/L (40-110); Anion Gap 14 mmol/L (10-20); BUN (Urea Nitrogen) 6 mg/dL (7.0-18.7); Bilirubin, Total 0.3 mg/dL (0.2-1.2); Calc. Creatinine Clearance 125 mL/min (70-130); Calcium 7.9 mg/dL (7.8-10.44); Carbon Dioxide 19 mmol/L (22-29); Chloride 106 mmol/L (98-107); Globulin 2.9 g/dL (2.4-3.5); Glucose 96 mg/dL (70-105); Potassium 3.9 mmol/L (3.5-5.1); Protein, Total 6.4 g/dL (6.0-8.3); Sodium 135 mmol/L (136-145)
[2021-05-11] MEDS: Enoxaparin Sodium 40 MG/0.4 ML SYRINGE SC SCH (08:49)
[2021-05-11] MEDS: Famotidine 20 MG TAB PO SCH ×2 (08:49→21:29)
[2021-05-11] MEDS: Dextrose 5 % And 0.9 % NaCl 1,000 ML IV SCH ×4 (08:57→20:05)
[2021-05-11] MEDS ORDERED: Magnevist 469MG/ML 20 ML VIAL ONE (09:00)
[2021-05-11] MEDS: diphenhydrAMINE 50 MG/ML VIAL IVP PRN (19:34)
[2021-05-11] MEDS: Ondansetron PF 4 MG/2 ML Vial IVP PRN (20:05)
[2021-05-11] MEDS: Zolpidem Tartrate 5 MG TAB PO PRN (21:56)
[2021-05-12] MEDS: Fentanyl 100 MCG/2 ML VIAL SLOW IVP PRN ×4 (06:17→22:04)
[2021-05-12] MEDS: Ondansetron PF 4 MG/2 ML Vial IVP PRN ×2 (06:18→20:59)
[2021-05-12] MEDS: diphenhydrAMINE 50 MG/ML VIAL IVP PRN ×2 (06:23→20:08)
[2021-05-12] MEDS: Famotidine 20 MG TAB PO SCH ×2 (09:40→21:56)
[2021-05-12] MEDS: Dextrose 5 % And 0.9 % NaCl 1,000 ML IV SCH ×2 (09:42→18:19)
[2021-05-12] MEDS ORDERED: Indomethacin 50 MG SUPP ONE (11:39)
[2021-05-12] MEDS ORDERED: Iothalamate Meglumine 60% 50 ML VIAL FS ONE (11:40)
[2021-05-12] MEDS ORDERED: Pantoprazole 40 MG VIAL IVP SCH (14:15)
[2021-05-12] MEDS ORDERED: Fentanyl 100 MCG/2 ML VIAL ONE (15:46)
[2021-05-12] MEDS ORDERED: SUGAMMADEX SODIUM 500 MG/5 ML VIAL ONE (15:46)
[2021-05-12] MEDS ORDERED: Midazolam HCl 2 mg/2 ml Vial ONE (15:46)
[2021-05-12] MEDS ORDERED: PROPOFOL 200 MG/20 ML VIAL ONE (15:57)
[2021-05-12] MEDS ORDERED: Rocuronium Bromide 10 MG/ML (10ML VIAL) ONE (15:57)
[2021-05-12] MEDS ORDERED: diphenhydrAMINE 50 MG/ML VIAL ONE (15:57)
[2021-05-12] MEDS ORDERED: Ondansetron PF 4 MG/2 ML Vial ONE (15:57)
[2021-05-12] MEDS ORDERED: Dexamethasone 20 MG/5 ML VIAL ONE (15:57)
[2021-05-12] MEDS ORDERED: Sodium Chloride 0.9% 10 ML ONE (16:18)
[2021-05-12] MEDS ORDERED: cefTRIAXone\\ROCEPHIN 1 GM VIAL ONE (16:18)
[2021-05-12] MEDS ORDERED: Ondansetron HCl/PF 4 MG/2 ML Vial IVP PRN (17:14)
[2021-05-12] MEDS: Pantoprazole 40 MG VIAL IVP SCH (20:08)
[2021-05-12] MEDS ORDERED: HumaLOG 300 UNITS/3 ML VIAL SC PRN (22:00)
[2021-05-12] MEDS: Zolpidem Tartrate 5 MG TAB PO PRN (22:06)
[2021-05-13] MEDS: diphenhydrAMINE 50 MG/ML VIAL IVP PRN ×4 (01:43→14:57)
[2021-05-13] MEDS: Fentanyl 100 MCG/2 ML VIAL SLOW IVP PRN ×2 (01:43→06:04)
[2021-05-13] MEDS: Dextrose 5 % And 0.9 % NaCl 1,000 ML IV SCH ×2 (01:45→11:48)
[2021-05-13 04:42] LABS: ALT (SGPT) 13 U/L (8-55); AST (SGOT) 19 U/L (5-34); Albumin 3.7 g/dL (3.5-5.0); Alkaline Phosphatase 77 U/L (40-110); Anion Gap 14 mmol/L (10-20); BUN (Urea Nitrogen) 7 mg/dL (7.0-18.7); Bilirubin, Total 0.2 mg/dL (0.2-1.2); Calc. Creatinine Clearance 115 mL/min (70-130); Calcium 8.5 mg/dL (7.8-10.44); Carbon Dioxide 17 mmol/L (22-29); Chloride 108 mmol/L (98-107); Globulin 3.4 g/dL (2.4-3.5); Glucose 219 mg/dL (70-105); Lipase 11 U/L (8-78); Potassium 3.9 mmol/L (3.5-5.1); Protein, Total 7.1 g/dL (6.0-8.3); Sodium 135 mmol/L (136-145)
[2021-05-13 04:48] LABS: Band 18 % (5-11); Hemoglobin 12.2 g/dL (12.0-16.0); Lymphocytes 16 % (21-51); MDiff Complete? YES; Mean Corpuscular HGB CONC 33.2 g/dL (32.0-36.0); Mean Corpuscular Hemoglobin 29.3 pg (27.0-31.0); Mean Corpuscular Volume 88.2 fL (78.0-98.0); Mean Platelet Volume 8.2 fL (7.4-10.4); Monocytes 1 % (0-10); Neutrophil 65 % (42-75); Platelet Count 218 thou/uL (130-400); RBC Distribution Width 15.2 % (11.5-14.5); Red Blood Cell (RBC) Count 4.16 mill/uL (4.20-5.40); White Blood Cell (WBC) Count 5.7 thou/uL (4.8-10.8)
[2021-05-13 07:56] VITALS: BP 91/55; TEMP 97.1
[2021-05-13] MEDS: Enoxaparin Sodium 40 MG/0.4 ML SYRINGE SC SCH (08:12)
[2021-05-13] MEDS: Pantoprazole 40 MG VIAL IVP SCH (08:12)
[2021-05-13] MEDS: Famotidine 20 MG TAB PO SCH (08:12)
[2021-05-13] MEDS: HYDROcodone/Acetaminophen 7.5/325 mg Tablet PO PRN ×2 (08:15→12:05)
[2021-05-13] MEDS: Ondansetron PF 4 MG/2 ML Vial IVP PRN (08:15)
[2021-05-13] MEDS: Pancrelipase DR 12,000 1 CAP PO SCH ×2 (11:47→16:59)
== END 2021-05-13 17:21 | disposition home or self-care (01) | DRG 444 ==
LOC: ERS 23:52 → ONC 05-10 01:28
PROVIDERS: ADMIT Internal Medicine; ATTEND Internal Medicine
PROC: 0F998ZZ Drainage of Common Bile Duct, Via Natural or Artificial Opening Endoscopic (ICD-10-PCS; principal; 2021-05-12)
PROC: BF101ZZ Fluoroscopy of Bile Ducts using Low Osmolar Contrast (ICD-10-PCS; 2021-05-12)
DX: K83.09 Other cholangitis (principal); K85.10 Biliary acute pancreatitis without necrosis or infection; K86.1 Other chronic pancreatitis; E11.9 Type 2 diabetes mellitus without complications; I48.91 Unspecified atrial fibrillation; D64.9 Anemia, unspecified; E66.9 Obesity, unspecified; K21.9 Gastro-esophageal reflux disease without esophagitis; K86.89 Other specified diseases of pancreas; R51.9 Headache, unspecified; N28.1 Cyst of kidney, acquired; K83.8 Other specified diseases of biliary tract; Z90.49 Acquired absence of other specified parts of digestive tract; Z79.899 Other long term (current) drug therapy; Z88.8 Allergy status to other drugs, medicaments and biological substances; Z68.27 Body mass index [BMI] 27.0-27.9, adult
CPT/HCPCS: 36415; 36416; 74177; 74183; 74330; 80053; 81003; 82150; 83690; 83735; 84100; 84443; 84703; 85025; 85027; 96374; 96375; A9579; C9113; J0696; J1100; J1200; J1610; J1650; J1815; J2250; J2270; J2405; J2704; J3010; Q9961; Q9967

== ENCOUNTER 2025-07-20 08:50 | Emergency (ER) | payer OTHER ==
[2025-07-20] MEDS ORDERED: Ondansetron PF 4 MG/2 ML Vial ONE (09:30)
[2025-07-20] MEDS ORDERED: Ketorolac Tromethamine 30 MG (1 mL) VIAL ONE (09:30)
[2025-07-20 09:55] LABS: #Basophils 0.03 10x3/uL (0.0-0.2); #Eosinophils 0.14 10x3/uL (0.0-0.7); #Monocytes 0.44 10x3/uL (0.11-0.59); #Neutrophils 3.50 10x3/uL (1.40-6.50); %Basophils 0.5 % (0.0-1.0); %Eosinophils 2.3 % (0.0-10.0); %Lymphocytes 30.7 % (21.0-51.0); %Monocytes 7.4 % (0.0-10.0); %Neutrophils 58.8 % (42.0-75.0); Hematocrit 37.9 % (36.0-47.0); Hemoglobin 12.6 g/dL (12.0-16.0); Mean Corpuscular Hemoglobin 30.1 pg (27.0-31.0); Mean Corpuscular Volume 90.5 fL (78.0-98.0); Platelet Count 232 10x3/uL (130-400); Red Blood Cell (RBC) Count 4.19 mill/uL (4.20-5.40); White Blood Cell (WBC) Count 5.96 10x3/uL (4.8-10.8)
[2025-07-20 10:08] LABS: INR-International Normal Ratio 1.0; Prothrombin Time 13.1 sec (12.0-14.7)
[2025-07-20 10:14] LABS: ALT (SGPT) 27 U/L (Less than 34); AST (SGOT) 40 U/L (11-34); Albumin 3.9 g/dL (3.1-4.5); Alkaline Phosphatase 66 U/L (40-110); Anion Gap 13 mmol/L (10-20); BUN (Urea Nitrogen) 9 mg/dL (7.0-18.7); Bilirubin, Total 0.5 mg/dL (0.3-1.2); Calc. Creatinine Clearance 0 mL/min (70-130); Calcium 8.9 mg/dL (7.8-10.44); Carbon Dioxide 21 mmol/L (22-29); Chloride 106 mmol/L (98-107); Globulin 3.2 g/dL (2.4-3.5); Glucose 99 mg/dL (70-105); Lipase 25 U/L (8-78); Potassium 3.9 mmol/L (3.5-5.1); Sodium 136 mmol/L (136-145)
[2025-07-20 10:16] LABS: BHCG - Serum Negative (NEGATIVE); Pregs Control Background? CLEAR/WHITE (CLR/WHITE); Pregs Control Bar Appear? YES (CONTROL BAR)
[2025-07-20 10:26] LABS: Bacteria/HPF None Seen HPF (None Seen); CAUTI Indications for Culture Dysuria,urgency,freq; Glucose, Urine (Dipstick) Normal (Negative); Leukocyte Negative Leu/uL (Negative); Protein, Urine (Dipstick) Negative (Neg-Trace); RBC/HPF None Seen HPF (0-3); Specific Gravity, Urine 1.011 (1.002-1.036); WBC/HPF 0-3 HPF (0-3)
[2025-07-20 10:30] LABS: Urine Culture Reflex No No
[2025-07-20] MEDS ORDERED: Iopamidol-370 76% 500 ML MDV (1 ML CHARGE) ONE (12:09)
== END 2025-07-20 13:04 | disposition home or self-care (01) ==
LOC: ERS 08:50
DX: K92.1 Melena (principal); K59.00 Constipation, unspecified; K86.1 Other chronic pancreatitis; E11.9 Type 2 diabetes mellitus without complications; I48.91 Unspecified atrial fibrillation; Z79.84 Long term (current) use of oral hypoglycemic drugs
CPT/HCPCS: 36415; 74177; 80053; 81001; 83690; 84703; 85025; 85610; 96361; 96374; 96375; J1885; J2405; Q9967